=== PATIENT | male | born 1940 | race Caucasian/White ===

== ENCOUNTER 2017-02-01 10:41 | Day surgery (SDC) | payer MEDICARE, BC ==
[~2017-02-01] VITALS: Ht 177.8 cm; Wt 99.4 kg
[2017-02-01] VITALS (10 sets, daily range): BP systolic 118–148; BP diastolic 36–97; PULSE 61–70; TEMP 97.3–98.5
[~2017-02-01 10:41] MED LIST: DYAZIDE 25 MG-31 CAP PO; NORCO 325 MG-7.1 TAB PO
[2017-02-01] MEDS ORDERED: HYTRIN 5MG C5 MG/CAP PO (11:10)
[2017-02-02 00:50] VITALS: BP 124/73; PULSE 59; TEMP 98.2
[2017-02-02 04:00] VITALS: BP 127/71; PULSE 49; TEMP 98.5
[2017-02-02 06:09] LABS: HEMATOCRIT 44.9 % (42.0-52.0); MEAN CELL VOLUME 89 fl (80.0-100.0); MEAN CORPUSCULAR HEMOGLOBIN 30 pg (27.0-31.0); MEAN CORPUSCULAR HGB CONC 33 g/dl (33.0-37.0); MEAN PLATELET VOLUME 11.2 fl (7.4-10.4); PLATELET COUNT 132 K/mm3 (130-400); RED BLOOD COUNT 5.03 M/mm3 (4.20-5.60); WHITE BLOOD COUNT 8.8 K/mm3 (4.8-10.8)
[2017-02-02 08:34] VITALS: BP 113/51; PULSE 62; TEMP 97.9
[2017-02-02 13:39] VITALS: BP 119/61; PULSE 74; TEMP 97.9
[2017-02-02 17:50] VITALS: BP 168/80; PULSE 79; TEMP 98.1
[2017-02-02 21:43] VITALS: BP 148/73; PULSE 82; TEMP 99.6
[2017-02-03 04:00] VITALS: BP 135/76; PULSE 75; TEMP 98.2
[2017-02-03 08:00] VITALS: BP 140/82; PULSE 72; TEMP 97.7
== END 2017-02-03 12:20 | disposition home or self-care (01) ==
LOC: SDCO 10:41 → SURG 15:35 → SDCO 02-03 12:20
PROVIDERS: Urology
DX: N40.1 Benign prostatic hyperplasia with lower urinary tract symptoms (principal); R33.9 Retention of urine, unspecified; N41.0 Acute prostatitis; J44.9 Chronic obstructive pulmonary disease, unspecified; K21.9 Gastro-esophageal reflux disease without esophagitis; I10 Essential (primary) hypertension; M19.90 Unspecified osteoarthritis, unspecified site; Z90.49 Acquired absence of other specified parts of digestive tract; Z87.891 Personal history of nicotine dependence; Z82.49 Family history of ischemic heart disease and other diseases of the circulatory system; Z83.3 Family history of diabetes mellitus; Z80.0 Family history of malignant neoplasm of digestive organs
CPT/HCPCS: OP; J1100; J2270; J2405; J2704; J3010; J3480; J7120

== ENCOUNTER → 2018-12-11 | Outpatient (CLI) | payer MEDICARE, BC ==
[~2018-12-11] MED LIST changes: +HYTRIN 5MG C5 MG/CAP PO
== END ==
LOC: COL.RAD 09:27
DX: M16.12 Unilateral primary osteoarthritis, left hip (principal)
CPT/HCPCS: J3301; Q9967

== ENCOUNTER → 2019-04-10 | Outpatient (CLI) | payer MEDICARE, BC | LOC: MHCPAIN 10:33 | DX: M54.5 Low back pain (principal); M53.3 Sacrococcygeal disorders, not elsewhere classified; M54.16 Radiculopathy, lumbar region; M48.061 Spinal stenosis, lumbar region without neurogenic claudication | CPT/HCPCS: G0463 ==

== ENCOUNTER 2021-10-26 08:08 | Outpatient (RCR) | payer MEDICARE, BC | END 2021-10-27 | disposition home or self-care (01) | LOC: PT.GENESIS | DX: M51.16 Intervertebral disc disorders with radiculopathy, lumbar region (principal); M48.061 Spinal stenosis, lumbar region without neurogenic claudication ==

== ENCOUNTER 2021-12-09 08:30 | Outpatient (RCR) | payer MEDICARE, BC | END 2021-12-27 | disposition home or self-care (01) | LOC: PT.GENESIS | DX: M51.16 Intervertebral disc disorders with radiculopathy, lumbar region (principal); M48.062 Spinal stenosis, lumbar region with neurogenic claudication ==